=== PATIENT | male | born 1965 | race Caucasian/White ===

== ENCOUNTER → 2019-12-28 | Outpatient (CLI) | payer BC ==
--- NOTE | 2019-12-28 16:45 | Diagnostic Imaging Report ---
INDICATION: Acute lower back pain. COMPARISON: None FINDINGS: Frontal and lateral radiographic views of the lumbar spine were obtained. Evaluation of static alignment shows slight grade I retrolisthesis at L1-L2 and L4-L5. There is no evidence of jumped facets. Vertebral body heights are maintained. There is no acute fracture. Note is made of moderate multilevel degenerative changes consistent with intervertebral disc height loss with endplate sclerosis and osteophyte formation. These changes are also greatest at the L1-L2 and L4-L5 levels. Included small bowel loops are nondistended. No unexpected radiopaque foreign bodies are seen. IMPRESSION: 1. No acute fracture or dislocation in the lumbar spine. 2. Moderate multilevel degenerative changes, greatest at L1-L2 and L4-L5. Dictated by: Dictated on workstation # [id number]
== END ==
LOC: RAD FS 15:02
PROVIDERS: ATTEND Nurse Practitioner
DX: M47.816 Spondylosis without myelopathy or radiculopathy, lumbar region (principal)
CPT/HCPCS: 72100